=== PATIENT | female | born 1980 | race Caucasian/White ===

== ENCOUNTER 2023-09-12 16:14 | Outpatient (CLI) | payer OTHER, SELFPAY | END 2023-09-12 16:15 | disposition home or self-care (01) | PROVIDERS: Visit Provider Physician Assistant | DX: R10.13 Epigastric pain (principal); R10.9 Unspecified abdominal pain | CPT/HCPCS: 87086 ==

== ENCOUNTER 2023-09-14 09:53 | Outpatient (CLI) | payer OTHER, SELFPAY | END 2023-09-14 09:54 | disposition home or self-care (01) | LOC: NFLDREF 09-15 07:04 | PROVIDERS: Visit Provider Physician Assistant | DX: R10.13 Epigastric pain (principal) | CPT/HCPCS: 87338 ==